=== PATIENT | female | born 1955 | race Caucasian/White ===

== ENCOUNTER 2018-02-20 12:22 | Emergency (ER) | payer MEDICARE, OTHER ==
[2018-02-20 12:38] VITALS: BP 128/73
--- NOTE | 2018-02-20 13:06 | UC ---
Knee Pain HPI - HPI Summary HPI Summary: Patient has swelling and color change to her left lower leg. She has pain the medial side of her thigh. Patient has known to have peripheral vascular disease and has been wearing compression hose on both legs - History of Current Complaint Chief Complaint: UCLowerExtremity Stated Complaint: LEFT LEG PAIN AND THROBBING Time Seen by Provider: 02/20/18 12:57 Hx Obtained From: Patient ?: No Onset/Duration: Sudden Onset, Lasting Days - 1 Severity Initially: Moderate Severity Currently: Moderate Pain Intensity: 8 Pain Scale Used: 0-10 Numeric Character: Aching, Throbbing Associated Signs And Symptoms: Positive: Swelling Able to Bear Weight: Yes - Allergies/Home Medications Allergies/Adverse Reactions: Allergies Allergy/AdvReac Type Severity Reaction Status Date / Time codeine Allergy Itching Verified 02/20/18 12:28 oxycodone [From Percocet] Allergy Itching Verified 02/20/18 12:28 Home Medications: Home Medications Cyclobenzaprine TAB* [Flexeril 10 MG TAB*] 10 mg PO BID PRN 02/20/18 [History Confirmed 02/20/18] PMH/Surg Hx/FS Hx/Imm Hx - Additional Past Medical History Additional PMH: Peripheral vascular disease, calcified DVT in her left leg Previously Healthy: No - insomnia - Surgical History Surgical History: Yes Surgery Procedure, Year, and Place: Anterior fusion Cervical spine 2007. RT SHOULDER SURGERY 06/19 - Family History Known Family History: Positive: None - Social History Occupation: Employed Full-time Lives: With Family Alcohol Use: None Substance Use Type: None Smoking Status (MU): Never Smoked Tobacco - Immunization History Most Recent Influenza Vaccination: 2012 Review of Systems Constitutional: Negative Skin: Negative Eyes: Negative ENT: Negative Respiratory: Negative Cardiovascular: Negative Gastrointestinal: Negative Genitourinary: Negative Motor: Negative Neurovascular: Negative Musculoskeletal: Negative, Myalgia - Calf and medial thigh pain on left leg Neurological: Negative Psychological: Negative Is Patient Immunocompromised?: No All Other Systems Reviewed And Are Negative: Yes Physical Exam Triage Information Reviewed: Yes Appearance: Well-Appearing, No Pain Distress, Well-Nourished Vital Signs: Initial Vital Signs Temp 97.9 F 02/20/18 12:31 Pulse 111 02/20/18 12:31 Resp 14 02/20/18 12:31 BP 128/73 02/20/18 12:31 Pulse Ox 97 02/20/18 12:31 Vital Signs Reviewed: Yes Eye Exam: Normal Eyes: Positive: Conjunctiva Clear ENT Exam: Normal ENT: Positive: Normal ENT inspection, Hearing grossly normal, Pharynx normal. Negative: Trismus, Muffled voice, Hoarse voice Respiratory Exam: Normal Respiratory: Positive: No respiratory distress, No accessory muscle use Cardiovascular Exam: Normal Cardiovascular: Positive: No Murmur, Pulses Normal, Brisk Capillary Refill, Tachycardia Musculoskeletal Exam: Normal Musculoskeletal: Positive: Strength Intact, ROM Intact, Edema @ Neurological Exam: Normal Neurological: Positive: Alert Psychological Exam: Normal Skin Exam: Other Skin: Positive: Other - Left lower leg chronic peripheral vascular disease changes in both legs significantly and then usually more pronounced in the left Knee Pain Course/Dx - Course Course Of Treatment: Patient will be discharged from the [facility] urgent [facility] to report directly to the [facility] emergency department for further evaluation and treatment of left lower leg swelling - Differential Dx/Diagnosis Provider Diagnoses: Peripheral vascular disease, left lower leg swelling Discharge - Sign-Out/Discharge Documenting (check all that apply): Discharge - Discharge Plan Condition: Stable Disposition: HOME Patient Education Materials: Leg Edema (ED) Referrals: Hubret King MD [Primary Care Provider] - Additional Instructions: Isela cabezas discharge from the urgent care center to go directly over to [facility] for further evaluation and treatment of the new pain and swelling that she have in her lower leg - Billing Disposition and Condition Condition: STABLE Disposition: HOME
== END 2018-02-20 13:21 | disposition home or self-care (01) ==
LOC: UCCORT 12:22
DX: I73.9 Peripheral vascular disease, unspecified (principal); R22.42 Localized swelling, mass and lump, left lower limb; Z88.5 Allergy status to narcotic agent
CPT/HCPCS: 99212; G0463

== ENCOUNTER 2018-04-14 14:00 | Emergency (ER) | payer MEDICARE ==
[2018-04-14 14:53] VITALS: BP 115/74
--- NOTE | 2018-04-14 15:31 | ED ---
Back Pain - HPI Summary HPI Summary: 62 yr old female with the complaint of mid upper back pain, onset over the past weekend. Pain severe, worse with deep breath, and she has been diagnosed with venous clot in proximal left thigh. She was put on plavix yesterday by her surgeon for the clot in her leg. She had recent venous surgery last week on the same leg. Patient denies CP. - History of Current Complaint Chief Complaint: UCBackPain Stated Complaint: UPPER BACK PAIN Time Seen by Provider: 04/14/18 15:01 Pain Intensity: 10 - Allergies/Home Medications Allergies/Adverse Reactions: Allergies Allergy/AdvReac Type Severity Reaction Status Date / Time codeine Allergy Itching Verified 04/14/18 14:53 oxycodone [From Percocet] Allergy Itching Verified 04/14/18 14:53 Home Medications: Home Medications Acetaminophen TAB* [Tylenol TAB*] 650 mg PO Q4H PRN 04/14/18 [History Confirmed 04/14/18] Clopidogrel TAB* [Plavix TAB*] 75 mg PO DAILY 04/14/18 [History Confirmed ] PMH/Surg Hx/FS Hx/Imm Hx Cardiovascular History: Denies: Hx Pacemaker/ICD Sensory History: Denies: Hx Hearing Aid Psychiatric History: Denies: Hx Panic Disorder - Surgical History Surgery Procedure, Year, and Place: Anterior fusion Cervical spine 2007. RT SHOULDER SURGERY 06/19 Infectious Disease History: No Infectious Disease History: Denies: Traveled Outside the [place] in Last 30 Days - Family History Known Family History: Positive: None - Social History Alcohol Use: None Substance Use Type: Reports: None Smoking Status (MU): Never Smoked Tobacco Review of Systems Constitutional: Negative Positive: Other - pain with breathing Positive: Other - back pain All Other Systems Reviewed And Are Negative: Yes Physical Exam Triage Information Reviewed: Yes Vital Signs On Initial Exam: Initial Vitals Temp Pulse Resp BP Pulse Ox 98.6 F 115 17 115/74 97 04/14/18 14:49 04/14/18 14:49 04/14/18 14:49 04/14/18 14:49 04/14/18 14:49 Vital Signs Reviewed: Yes Appearance: Positive: Well-Appearing, No Pain Distress Skin: Positive: Warm Head/Face: Positive: Normal Head/Face Inspection Eyes: Positive: EOMI ENT: Positive: Normal ENT inspection Respiratory/Lung Sounds: Positive: Clear to Auscultation, Breath Sounds Present Cardiovascular: Positive: RRR, Tachycardia. Negative: Murmur Abdomen Description: Positive: Nontender Musculoskeletal: Positive: Strength/ROM Intact Neurological: Positive: Sensory/Motor Intact, Alert, Oriented to Person Place, Time, CN Intact II-III Psychiatric: Positive: Normal - [place] Coma Scale Best Eye Response: 4 - Spontaneous Best Motor Response: 6 - Obeys Commands Best Verbal Response: 5 - Oriented Coma Scale Total: 15 Diagnostics - Vital Signs Vital Signs Temp Pulse Resp BP Pulse Ox 04/14/18 14:49 98.6 F 115 17 115/74 97 - Laboratory Lab Statement: Any lab studies that have been ordered have been reviewed, and results considered in the medical decision making process. Back Pain Course/Dx - Course Course Of Treatment: 62 yr old female with back pain, pleuritic pain, worse with breathing. She has known clot in her left leg. She will got to [facility] in [place] per her request, Report given to [facility] by me. - Diagnoses Provider Diagnoses: Back pain, Pleuritic pain Discharge - Sign-Out/Discharge Documenting (check all that apply): Discharge/Admit/Transfer - Discharge Plan Condition: Good Disposition: TRANS HIGHER LVL OF CARE FAC Patient Education Materials: Back Pain (ED) Referrals: Hubert King MD [Primary Care Provider] - - Billing Disposition and Condition Condition: GOOD Disposition: Trans Higher Lvl of Care Fac
== END 2018-04-14 15:45 | disposition short-term general hospital (02) ==
LOC: UCCORT 14:00
DX: M54.6 Pain in thoracic spine (principal); R07.81 Pleurodynia; Z88.5 Allergy status to narcotic agent
CPT/HCPCS: 99213; G0463